=== PATIENT | male | born 1980 | race Caucasian/White ===

== ENCOUNTER 2018-12-16 20:41 | Emergency (ER) | payer OTHER ==
[~2018-12-16] VITALS: Ht 165.1 cm; Wt 72.6 kg
[2018-12-16] MEDS ORDERED: KEFLEX500 M1 PO (21:48)
[2018-12-16 22:04] VITALS: BP 144/81
== END 2018-12-16 22:04 | disposition home or self-care (01) ==
LOC: M.ERS 20:41
DX: S61.011A Laceration without foreign body of right thumb without damage to nail, initial encounter (principal); W26.8XXA Contact with other sharp object(s), not elsewhere classified, initial encounter; Y93.89 Activity, other specified; Y92.89 Other specified places as the place of occurrence of the external cause; Y99.8 Other external cause status; F17.200 Nicotine dependence, unspecified, uncomplicated; Z88.2 Allergy status to sulfonamides